=== PATIENT | male | born 1985 | race Caucasian/White ===

== ENCOUNTER 2020-03-17 17:34 | Emergency (ER) | payer OTHER ==
[~2020-03-17 17:34] MED LIST: BACLOFEN 10MG T10 MG PO; BACTRIM DS TAB1 EACH PO; BUPRENORPHINE HC8 MG SL; CARAFATE1 GM PO; CATAPRES0.1 MG PO; CEFDINIR300 MG PO; CELEXA20 MG PO; CLEOCIN300 MG PO; CYCLOBENZAPRINE10 MG PO; DIFLUCAN150 MG PO; IBUPROFEN800 MG PO; MEDROL 4MG DOSEP4 MG PO; NAPROXEN500 MG PO; PROTONIX 40MG T40 MG PO; ROBAXIN500 MG PO; VIBRAMYCIN100 MG PO
[2020-03-17 19:49] LABS: BASOPHIL 1.1 % (0-2); EOSINOPHIL 11.6 % (0-5); HCT 44.1 % (42.0-52.0); HGB 14.8 g/dl (13.2-18.0); LYMPHOCYTE 21.8 % (15-48); MCHC 33.6 g/dL (32.0-36.0); MCV 89.5 fL (78.0-100.0); MONOCYTE 4.6 % (0-12); MPV 10.6 fL (6.0-9.5); NEUTROPHIL 60.8 % (41-80); NRBC 0; PLT 196 K/uL (150-400); RBC 4.93 M/uL (4.70-6.00); RDW 12.7 % (11.5-14.0); WBC 7.1 K/uL (4.0-10.5)
[2020-03-17 20:23] LABS: BILIRUBIN - TOTAL 0.2 mg/dL (0.2-1.0); CREATININE 0.84 mg/dL (0.67-1.17); GLOBULIN (CALCULATION) 2.7 g/dL; MAGNESIUM 2.1 mg/dL (1.8-2.4); POTASSIUM 3.7 mmol/L (3.5-5.1); TOTAL PROTEIN 6.7 g/dL (6.4-8.2)
[2020-03-17] MEDS ORDERED: ONDANSETRON ODT4 MG SL (20:47)
[2020-07-27] MEDS ORDERED: TEMOVATE 0.05%45 GM TOP (13:01)
[2020-07-27] MEDS ORDERED: INDERAL20 MG PO (13:03)
[2020-07-27] MEDS ORDERED: KETOCONAZOLE120 ML TOP (13:04)
[2020-07-27] MEDS ORDERED: ASPIRIN325 MG PO (13:05)
[2020-07-27] MEDS ORDERED: PREVACID30 MG PO (13:06)
[2020-08-03] MEDS ORDERED: ACETAMINOPHEN500 M1 PO (11:33)
[2020-08-03] MEDS ORDERED: COLACE100 MG PO (11:33)
[2020-08-03] MEDS ORDERED: OXY-IR 5MG5 MG PO (11:33)
== END 2020-03-17 21:02 | disposition home or self-care (01) ==
LOC: FER 17:34
PROVIDERS: Emergency Medicine Emergency Medical Services
DX: R06.02 Shortness of breath (principal); R20.2 Paresthesia of skin; R42 Dizziness and giddiness; F17.200 Nicotine dependence, unspecified, uncomplicated; Z88.0 Allergy status to penicillin; Z88.1 Allergy status to other antibiotic agents
CPT/HCPCS: 36415; 71046; 80053; 82550; 83735; 84443; 84484; 85025; 93005; J7512

== ENCOUNTER → 2020-08-03 | Day surgery (SDC) | payer OTHER ==
[~2020-08-03] MED LIST changes: +ACETAMINOPHEN500 M1 PO; +ASPIRIN325 MG PO; +COLACE100 MG PO; +INDERAL20 MG PO; +KETOCONAZOLE120 ML TOP; +ONDANSETRON ODT4 MG SL; +OXY-IR 5MG5 MG PO; +PREVACID30 MG PO; +TEMOVATE 0.05%45 GM TOP
[2020-08-03 10:01] LABS: BUN/CREAT RATIO (CALC) 17.6 RATIO; CREATININE 0.85 mg/dL (0.67-1.17); POTASSIUM 4.3 mmol/L (3.5-5.1)
== END | disposition home or self-care (01) ==
LOC: FAS 08:23
PROVIDERS: Anesthesiology
DX: L05.91 Pilonidal cyst without abscess (principal); K21.9 Gastro-esophageal reflux disease without esophagitis; Z88.0 Allergy status to penicillin; Z88.1 Allergy status to other antibiotic agents; Z83.3 Family history of diabetes mellitus; Z82.49 Family history of ischemic heart disease and other diseases of the circulatory system
CPT/HCPCS: 36415; 80048; J1644; J2250; J2405; J2704; J2710; J3010; J3370; J7050; J7120

== ENCOUNTER 2020-12-29 21:39 | Emergency (ER) | payer OTHER ==
[2020-12-29] MEDS ORDERED: VIBRAMYCIN100 MG PO (23:02)
== END 2020-12-29 23:10 | disposition home or self-care (01) ==
LOC: FER 21:39
DX: K05.219 Aggressive periodontitis, localized, unspecified severity (principal); K03.81 Cracked tooth; F17.200 Nicotine dependence, unspecified, uncomplicated; Z88.0 Allergy status to penicillin; Z88.1 Allergy status to other antibiotic agents
CPT/HCPCS: 96372; J1885; Q0163

== ENCOUNTER 2021-01-09 21:31 | Emergency (ER) | payer OTHER | END 2021-01-09 23:00 | disposition home or self-care (01) | LOC: FER 21:31 | DX: K02.9 Dental caries, unspecified (principal); I10 Essential (primary) hypertension; F17.210 Nicotine dependence, cigarettes, uncomplicated; Z88.0 Allergy status to penicillin; Z88.1 Allergy status to other antibiotic agents; Z88.5 Allergy status to narcotic agent; Z79.899 Other long term (current) drug therapy | CPT/HCPCS: J1885; Q0163 ==

== ENCOUNTER 2021-05-23 16:22 | Emergency (ER) | payer OTHER ==
[2021-05-23] MEDS ORDERED: ONDANSETRON ODT4 MG PO (19:08)
[2021-05-23] MEDS ORDERED: NAPROXEN500 MG PO (19:08)
[2021-05-23] MEDS ORDERED: CYCLOBENZAPRINE10 MG PO (19:08)
== END 2021-05-23 19:36 | disposition home or self-care (01) ==
LOC: FER 16:22
DX: S61.411A Laceration without foreign body of right hand, initial encounter (principal); S39.012A Strain of muscle, fascia and tendon of lower back, initial encounter; S00.93XA Contusion of unspecified part of head, initial encounter; F17.210 Nicotine dependence, cigarettes, uncomplicated; I10 Essential (primary) hypertension; Z23 Encounter for immunization; Z88.0 Allergy status to penicillin; Z88.1 Allergy status to other antibiotic agents; V49.60XA Unspecified car occupant injured in collision with unspecified motor vehicles in traffic accident, initial encounter
CPT/HCPCS: 71045; 73600; 90471; 90715; 96372; J1885